=== PATIENT | female | born 1990 | race Caucasian/White ===

== ENCOUNTER 2016-10-11 06:43 | Emergency (ER) | payer BC ==
[~2016-10-11 06:43] MED LIST: MACR100C2 PO; OXYC1SOL5 PO; PERI8.6T PO; PRENTAB50 PO
[2016-10-11 08:00] LABS: BACTERIA, URINE FEW /hpf; BLOOD, URINE LARGE (NEG); COMMENT (UR) CULTURE INDICATED; CULTURE IF INDICATED CULTURE INDICATED; GLUCOSE,URINE NEG (NEG); KETONE, URINE NEG (NEG); NITRITE,URINE NEG (NEG); SQUAMOUS EPITHELIAL CELL URINE 21 /hpf (0-5); URINE COLOR YELLOW (YELLW/STRAW)
[2016-10-11] MEDS ORDERED: ZITH1POW PO (08:19)
[2016-10-11] MEDS ORDERED: CEPH-460 PO (08:19)
--- NOTE | 2016-10-11 08:20 | PD ---
HPI Chief Complaint Spotting and cramping ,headache Date Seen: Oct 11, 2016 Travel History International Travel<30 Days: No Contact w/Intl Traveler<30Days: No Known Affected Area: No History of Present Illness HPI Patient is 25-year-old white female previous 1 ,at 25 weeks gestation is complaining of some lower abdominal cramping and spotting noted today just a small clot and headache, she denies loss of amniotic fluid or heavy vaginal bleeding and no contractions, heart rate tracing is reactive and there are no contractions, she denies any postcoital bleeding and has not had a pelvic exam recently. Para: 1 : 2 History Obstetric History Obstetric History 1 Past Surgical History Narrative Surgical 1 Social History Alcohol Use: No Tobacco Use: No Substance Abuse: No Allergies-Medications (Allergen,Severity, Reaction): Coded Allergies: No Known Allergies (Unverified , 06/22/16) Home Meds Active Scripts Nitrofurantoin Monohydrate Macrocrystals (Macrobid)100 Mg [id number] Mg PO BID 5 Days Ref 0 Prov:Eriberto Michaels MD 06/23/16 Sennosides-Docusate Sodium (Ginna-Colace 8.6-50 mg)1 Tab Tab2 Tab PO Q12H PRN ( CONSTIPATION) #30 TAB Ref 0 Prov:dAe Rooney CNM AMMUNITION SUPERVISOR 02/09/15 Oxycodone W/ Acetaminophen (Oxycodone/Acetaminophen 5-325 mg/5Ml)1 Tab Tab1 Tab PO Q4H PRN (PAIN SCALE 3 TO 5) #30 TAB Prov:Chiquita Christianson MD 02/07/15 Reported Medications Without A Vit W/ Fe F ( Formula A-Free)1 Tab Tab1 Tab PO DAILY 02/05/15 Review of Systems General / Constitutional: No: Fever, Weight Gain, Chills, Other Eyes: Visual changes, No: Diploplia, Blurred Vision, Pain, Photophobia HENT: Headaches, No: Vertigo, Lightheadedness Cardiovascular: No: Irregular Rhythm, Chest Pain or Discomfort, Palpitations, Tachycardia, Syncope, Varicosities, Edema, Cyanosis Respiratory: No: Cough, Short of Breath, Other Gastrointestinal: Abdominal Pain, No: Nausea, Vomiting, Diarrhea Genitourinary: Vaginal Bleeding, No: Decreased Urinary Output, Oliguria Musculoskeletal: No: Limited ROM, Weakness, Cramping, Edema, Pain Skin: No Rash, No Itching, No Dryness, No Lumps, No Change in Pigmentation, No Change in Nails, No Alopecia, No Lesions Neurologic: No: Weakness, Dizziness, Syncope, Focal Abnormalities, Coordination Problem, Headache, Slurred Speech, Seizures Psychiatric: No: Depression, Suicidal Ideations, Homicidal Ideation Endocrine: No: Heat Intolerance, Cold Intolerance, Polydipsia, Polyuria, Other Physical Exam Narrative GENERAL: Well-nourished, well-developed patient. SKIN: Warm and dry. HEAD: Normocephalic and atraumatic. EYES: No scleral icterus. No injection or drainage. ENT: No nasal drainage noted. Mucous membranes pink. Airway patent. NECK: Supple, trachea midline. No JVD. CARDIOVASCULAR: Regular rate and rhythm without murmurs, gallops, or rubs. RESPIRATORY: Breath sounds equal bilaterally. No accessory muscle use. BREASTS: Bilateral exam showed no masses , no retractions, no nipple discharge. ABDOMEN/GI: Abdomen soft, non-tender, bowel sounds present, no rebound, no guarding Gravid to [-25] weeks size Fundal Height: [25-] GENITOURINARY: External Genitalia: intact and normal in appearance BUS glands: [-] Cervix: [very friable infected there is a dark brownish purulent discharge from the cervix and posterior fornix and the cervix very friable touch it with the speculum it was wanting to bleed freely-] cervix is large soft the large ectocervical area which provides a large field of tissue that is very easy to get infected and to bleed Dilatation: [-Closed] Effacement: [-] Uneffaced Station: [-] Membranes: [intact ] Uterine Contractions: [none-] FHT's: Category: [1-] Baseline: [133-] Reactive: [yes for 25 weeks-] Variability: [mod-] Decels: [none-] EXTREMITIES: No cyanosis or edema. BACK: Nontender without obvious deformity. No CVA tenderness. NEUROLOGICAL: Awake and alert. Motor and sensory grossly within normal limits. Five out of 5 muscle strength in all muscle groups. Normal speech. Data Data Orders Vital Signs (Adult) .ON ADMISSION (10/11/16 07:30) ^ Labor Status (10/11/16 07:30) Urinalysis - C+S If Indicated (10/11/16 07:30) Wet Prep Profile (10/11/16 07:30) Urine Culture (10/11/16 06:55) Labs Laboratory Tests Test 10/11/16 10/11/16 06:55 07:20 Urine Color YELLOW Urine Turbidity HAZY Urine pH 7.0 Urine Specific [place] 1.014 Urine Protein TRACE Urine Glucose (UA) NEG Urine Ketones NEG Urine Occult Blood LARGE Urine Nitrite NEG Urine Bilirubin NEG Urine Urobilinogen LESS THAN 2.0 Urine Leukocyte Esterase LARGE Urine RBC 1 Urine WBC 58 Urine WBC Clumps OCC Urine Squamous Epithelial 21 Cells Urine Amorphous Sediment RARE Urine Bacteria FEW Microscopic Urinalysis Comment CULTURE INDICATED Clue Cells (Wet Prep) NONE SEEN Vaginal Trichomonas (Wet Prep) NONE SEEN Vaginal Yeast (Wet Prep) NONE SEEN Date/Time Procedure Status Source Growth 10/11/16 06:55 Urine Culture Received Urine Clean Catch Pending MDM Interpretation(s) Patient is a 25-year-old white female previous at 25 weeks now with spotting and lower abdominal cramping. Examination shows cervicitis with a fairly heavy thick brownish purulent discharge in the cervix coming from the cervix which is a large wide ectocervical space which is very friable and bleeds very easily just barely touching it with speculum or digital exam, the wet prep showed no trichomoniasis yeast or clue cells however there is no question is a purulent discharge probably bacterial, urinalysis also positive culture indicated but I believe this is probably just cross contamination from the vaginal..purulence noted on exam. heart rate tracing is reactive and there are no contractions noted. Plan Plan the patient take 1 g of Zithromax by mouth and a 7 day course of Keflex 500 3 times a day, if her to follow-up with her OB provider for further symptoms or check for clearance of infection Diagnosis Diagnosis: Primary Impression: Abdominal pain during in second trimester Additional Impressions: Cervicitis Spotting affecting in second trimester Disposition: 01 DISCHARGE HOME Condition: Stable Scripts Cephalexin (Keflex)500 Mg [id number] Mg PO Q8H #30 CAP Ref 0 Prov:Marvel Gavin II, MD 10/11/16 Azithromycin Powder Packet (Zithromax Powder Packet)1 Gm Powderpack1 Gm PO ONCE #1 PKT Ref 0 Mix with water according to packet instructions before use. Prov:Marvel Gavin II, MD 10/11/16 Marvel Gavin II, MD Oct 11, 2016 08:20
== END 2016-10-11 08:48 | disposition home or self-care (01) ==
LOC: HOBED 06:43
DX: O26.852 Spotting complicating pregnancy, second trimester (principal); O23.512 Infections of cervix in pregnancy, second trimester; B96.89 Other specified bacterial agents as the cause of diseases classified elsewhere; Z3A.25 25 weeks gestation of pregnancy
CPT/HCPCS: 81001; 87086; 87210; 99284

== ENCOUNTER 2016-10-28 12:58 | Inpatient (IN) | payer BC ==
[~2016-10-28] VITALS: Ht 152.4 cm; Wt 90.7 kg
[2016-12-17] MEDS ORDERED: PREN29TA PO (19:41)
--- NOTE | 2017-01-10 14:01 | HHI.HP ---
HPI Chief Complaint preop H&P for scheduled term repeat and BTL (01/15/17) Date Seen: Jan 10, 2017 Time Seen: 10:00 Travel History International Travel<30 Days: No Contact w/Intl Traveler<30Days: No Known Affected Area: No History of Present Illness HPI 26 yo with EDC 01/22/17 will present 01/15/17 for scheduled elective repeat and BTL at 39 weeks. 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 Also had abnormal 1hr GTT but 3h wnl. Prior born via 01/2015 had Marques' s (known during ). This has been healthy with negative cfDNA and normal msAFP as well as normal ultrasounds. Pt declines MFM referral based on history. At office visit 01/10/17 pt c/o pelvic pressure but no regular contractions, no VB, no LOF. Good FM. Pain 2/10 pelvis. 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, female Past Surgical History Narrative Surgical 01/2015 Family History Narrative Family History personal history daughter with Marques's syndrome Family History: Negative Social History Alcohol Use: No Tobacco Use: No Substance Abuse: No Allergies-Medications (Allergen,Severity, Reaction): Coded Allergies: No Known Allergies (Unverified , 12/17/16) Review of Systems General / Constitutional: Weight Gain, No: Fever, Chills, Other Eyes: No: Diploplia, Blurred Vision, Visual changes, Pain, Photophobia HENT: No: Headaches, Vertigo, Lightheadedness Cardiovascular: No: Irregular Rhythm, Chest Pain or Discomfort, Palpitations, Tachycardia, Syncope, Varicosities, Edema, Cyanosis Respiratory: No: Cough, Short of Breath, Other Gastrointestinal: No: Nausea, Vomiting, Diarrhea Genitourinary: Pelvic Pain (pressure), No: Decreased Urinary Output, Oliguria Musculoskeletal: No: Limited ROM, Weakness, Cramping, Edema, Pain Skin: No Rash, No Itching, No Dryness, No Lumps, No Change in Pigmentation, No Change in Nails, No Alopecia, No Lesions Neurologic: No: Weakness, Dizziness, Syncope, Focal Abnormalities, Coordination Problem, Headache, Slurred Speech, Seizures Psychiatric: No: Depression, Suicidal Ideations, Homicidal Ideation Endocrine: No: Heat Intolerance, Cold Intolerance, Polydipsia, Polyuria, Other Physical Exam Narrative GENERAL: Well-nourished, well-developed patient. SKIN: Warm and dry. HEAD: Normocephalic and atraumatic. EYES: No scleral icterus. No injection or drainage. ENT: No nasal drainage noted. Mucous membranes pink. Airway patent. NECK: Supple, trachea midline. No JVD. CARDIOVASCULAR: Regular rate and rhythm without murmurs, gallops, or rubs. RESPIRATORY: Breath sounds equal bilaterally. No accessory muscle use. BREASTS: deferred. ABDOMEN/GI: Abdomen soft, non-tender, bowel sounds present, no rebound, no guarding Gravid to [39] weeks size Fundal Height: [39] GENITOURINARY: closed/thick/posterior -3 Presentation: [vtx] Membranes: [intact] Uterine Contractions: [none] FHT's: 150s EXTREMITIES: No cyanosis or edema. BACK: Nontender without obvious deformity. No CVA tenderness. NEUROLOGICAL: Awake and alert. Motor and sensory grossly within normal limits. Five out of 5 muscle strength in all muscle groups. Normal speech. Data Data Vital Signs Reviewed: Yes Assessment/Plan Problem List: (1) Term (2) History of delivery Assessment and Plan 26 yo who will be 39 wks on 01/15/17, at time of scheduled repeat and BTL. 1) h/o CD for repeat with BTL: r/b/a of procedure d/w pt, AQA, tubal consents & consents signed, Dr. Tanner will be performing surgery 2) UDF: for BTL at time of 3) prior infant with Marques's: all testing negative this , pt declines MFM consult; had normal anatomy scan 4) abnl 1h, passed 3h 5) status: vtx, female, AGA Discharge Planning routine, 2-3d Elida Campos MD Jan 10, 2017 14:01
[2017-01-15] VITALS (25 sets, daily range): BP systolic 120–137; BP diastolic 55–78; PULSE 82–103; RESP 18; TEMP 97.5–99.5; O2SAT 97–98
[2017-01-15 08:54] LABS: AUTOMATED NEUTROPHIL # 7.3 TH/MM3 (1.8-7.7); BASOPHIL # 0.1 TH/MM3 (0-0.2); BASOPHIL % 0.5 % (0.0-2.0); EOSINOPHIL # 0.1 TH/MM3 (0-0.4); EOSINOPHIL % 1.1 % (0.0-4.0); HEMATOCRIT 36.8 % (35.0-46.0); HEMO FLAGS DIFF FINAL; LYMPH % 20.9 % (9.0-44.0); LYMPHOCYTE # 2.2 TH/MM3 (1.0-4.8); MEAN CELL VOLUME 84.5 FL (80.0-100.0); MEAN CORPUSCULAR HEMOGLOBIN 28.5 PG (27.0-34.0); MEAN CORPUSCULAR HGB CONC 33.7 % (32.0-36.0); MONO % 6.8 % (0.0-8.0); NEUT % 70.7 % (16.0-70.0); PLATELET COUNT 164 TH/MM3 (150-450); RED BLOOD COUNT 4.36 MIL/MM3 (4.00-5.30); RED CELL DISTRIBUTION WIDTH 14.7 % (11.6-17.2); WHITE BLOOD COUNT 10.3 TH/MM3 (4.0-11.0)
[2017-01-15] MEDS ORDERED: LACTATED RINGER'S 1000 ML INJ 1,000 ML IV ONE (09:00)
[2017-01-15 09:01] LABS: BACTERIA, URINE OCC /hpf; BLOOD, URINE NEG (NEG); COMMENT (UR) CULTURE INDICATED; CULTURE IF INDICATED CULTURE INDICATED; GLUCOSE,URINE NEG (NEG); KETONE, URINE TRACE mg/dL (NEG); MUCUS URINE FEW /lpf (OCC); NITRITE,URINE NEG (NEG); SQUAMOUS EPITHELIAL CELL URINE 15 /hpf (0-5); URINE COLOR YELLOW (YELLW/STRAW)
[2017-01-15] MEDS ORDERED: LACTATED RINGER'S 1000 ML INJ 1,000 ML IV SCH ×2 (09:30→16:35)
[2017-01-15] MEDS ORDERED: OXYTOCIN 10 UNIT/ML AMP ONE (09:31)
[2017-01-15] MEDS ORDERED: ceFAZolin 2 GM PREMIX 50 ML IV SCH (09:45)
[2017-01-15] MEDS ORDERED: CITRIC ACID-SODIUM CITRATE LIQ 30 ML UDC PO SCH (10:15)
[2017-01-15] MEDS ORDERED: ONDANSETRON HCL 4 MG/2 ML VIAL ONE (11:12)
[2017-01-15] MEDS ORDERED: MORPHINE SULFATE PF 10 MG/10 ML VIAL ONE (11:12)
[2017-01-15] MEDS ORDERED: OXYTOCIN 30 UNITS-500ML PREMIX 500 ML ONE (11:20)
--- NOTE | 2017-01-15 11:35 | PD.OB.DELI ---
Procedure Note Section Procedure Pre Op Diagnosis: (1) History of delivery (2) Encounter for sterilization Post Op Diagnosis: (1) Delivered by section (2) Encounter for sterilization Performed by Fe Tanner Procedure: Repeat Low Transverse Sec, Other (fay bilateral tubal ligation) Indication for delivery: Desired elective repeat Informed consent obtained: For anesthesia, For procedure Confirmed correct: Patient, Procedure, Site, Time-out taken Anesthesia: Spinal Medication prior to procedure: As documented in eMAR Monitoring during procedure: Blood pressure monitoring, Pulse oximetry Urinary catheter: Inserted using sterile technique, To dependent drainage, ml urine output (100) Sterile preparation: Duraprep Position: Supine with wedge to right side Operative Features Skin Incision: Pfannenstiel Uterine Incision: Low transverse w/knife / blunt ext Membranes Ruptured: Amount of liquid (copious), Appearance of fluid (cl) Presentation: Vertex Delivery of infant: Uneventful : Female One Minute : 9 Five Minute : 9 Weight: 3950g Status of infant: Viable, Cord blood Placenta delivered: Intact Medications: Antibiotics, Oxytocin Estimated blood loss: 500ml Procedure tolerated: Well Maternal Condition: Stable Condition: Stable Procedure in detail dictated Fe Tanner MD Jan 15, 2017 11:35
[2017-01-15] MEDS ORDERED: oxyCODONE/ACETAMINOPHEN 5 MG/325 MG TAB PO PRN (11:45)
[2017-01-15] MEDS ORDERED: ZOLPIDEM TARTRATE 5 MG TAB PO PRN (11:45)
[2017-01-15] MEDS ORDERED: OXYTOCIN 30 UNITS-500ML PREMIX 500 ML IV ONE (11:45)
[2017-01-15] MEDS ORDERED: SIMETHICONE 80 MG CHEWABLE TAB PO PRN (11:45)
[2017-01-15] MEDS ORDERED: ONDANSETRON HCL 4 MG/2 ML VIAL IV PUSH PRN (11:45)
[2017-01-15] MEDS ORDERED: ACETAMINOPHEN 325 MG TAB PO PRN (11:45)
[2017-01-15] MEDS ORDERED: ACETAMINOPHEN 1000 MG/100 ML VIAL IV ONE (11:45)
[2017-01-15] MEDS ORDERED: SODIUM CHLORIDE 0.9% FLUSH 10 ML FLUSH IV FLUSH PRN (11:45)
[2017-01-15] MEDS ORDERED: EPIDURAL-DIPHENHYDRAMINE HCL 50 MG/ML VIAL IV PUSH PRN (12:45)
[2017-01-15] MEDS ORDERED: EPIDURAL-DO NOT ADMINISTER ANTICOAGULANTS PRN (12:45)
[2017-01-15] MEDS ORDERED: EPIDURAL-NALOXONE HCL 0.4 MG/ML AMP IV PRN (12:45)
[2017-01-15] MEDS ORDERED: EPIDURAL-NO SYSTEMIC NARCOTICS PRN (12:45)
[2017-01-15] MEDS ORDERED: EPIDURAL-DIPHENHYDRAMINE HCL 50 MG CAP PO PRN (12:45)
[2017-01-15] MEDS ORDERED: SODIUM CHLORIDE 0.9% FLUSH 10 ML FLUSH IV FLUSH SCH (21:00)
[2017-01-15] MEDS ORDERED: OXYTOCIN 30 UNITS-500ML PREMIX 500 ML IV PRN (21:45)
[2017-01-15] MEDS: oxyCODONE/ACETAMINOPHEN 5 MG/325 MG TAB PO PRN (22:43)
[2017-01-15] MEDS: IBUPROFEN 600 MG TAB PO PRN (22:43)
[2017-01-16] MEDS: oxyCODONE/ACETAMINOPHEN 5 MG/325 MG TAB PO PRN ×4 (03:19→20:47)
[2017-01-16 03:24] VITALS: BP 114/76; PULSE 94; RESP 18; TEMP 98.9; O2SAT 97
[2017-01-16 06:05] LABS: AUTOMATED NEUTROPHIL # 8.1 TH/MM3 (1.8-7.7); BASOPHIL % 0.3 % (0.0-2.0); EOSINOPHIL # 0.1 TH/MM3 (0-0.4); EOSINOPHIL % 0.9 % (0.0-4.0); HEMATOCRIT 29.7 % (35.0-46.0); HEMO FLAGS DIFF FINAL; LYMPH % 16.4 % (9.0-44.0); LYMPHOCYTE # 1.8 TH/MM3 (1.0-4.8); MEAN CELL VOLUME 83.8 FL (80.0-100.0); MEAN CORPUSCULAR HEMOGLOBIN 29.6 PG (27.0-34.0); MEAN CORPUSCULAR HGB CONC 35.3 % (32.0-36.0); MONO % 6.7 % (0.0-8.0); NEUT % 75.7 % (16.0-70.0); PLATELET COUNT 120 TH/MM3 (150-450); RED BLOOD COUNT 3.54 MIL/MM3 (4.00-5.30); RED CELL DISTRIBUTION WIDTH 14.8 % (11.6-17.2); WHITE BLOOD COUNT 10.7 TH/MM3 (4.0-11.0)
[2017-01-16 08:20] VITALS: BP 120/84; PULSE 98; RESP 16; TEMP 97.9
--- NOTE | 2017-01-16 08:26 | HHI.OB ---
Subjective Post Operative Day: 1 Remarks doing well, ambulating Objective Vitals/I&O Vital Signs Date Time Temp Pulse Resp B/P Pulse Ox O2 Delivery O2 Flow Rate FiO2 01/16/17 03:24 98.9 94 18 114/76 97 01/15/17 20:00 96 18 01/15/17 20:00 125/75 01/15/17 20:00 99.5 01/15/17 17:00 98.0 88 18 120/78 01/15/17 12:40 98.4 89 18 123/75 01/15/17 12:00 98.3 97 01/15/17 12:00 90 18 128/62 01/15/17 11:45 88 127/55 01/15/17 11:45 18 98 01/15/17 11:30 137/67 01/15/17 11:30 90 18 97 01/15/17 11:15 103 131/65 01/15/17 11:15 97.5 18 98 01/15/17 09:45 84 01/15/17 09:40 91 01/15/17 09:35 87 01/15/17 09:25 85 01/15/17 09:20 86 01/15/17 09:15 86 01/15/17 09:10 82 01/15/17 09:05 83 01/15/17 09:00 85 01/15/17 08:55 86 01/15/17 08:50 90 01/15/17 08:45 95 01/15/17 08:40 93 01/15/17 08:35 93 01/15/17 08:30 92 01/15/17 08:25 98 Result Diagram: 01/16/17 0530 Objective Remarks GENERAL: Well-nourished, well-developed patient. CARDIOVASCULAR: Regular rate and rhythm without murmurs, gallops, or rubs. RESPIRATORY: Breath sounds equal bilaterally. No accessory muscle use. ABDOMEN/GI: Abdomen soft, non-tender, bowel sounds present. Incision: dressing Clean, dry and intact. Fundus: Firm, non-tender at umbilicus. GENITOURINARY: Light to moderate bleeding. EXTREMITIES: No cyanosis or edema, non-tender, without signs of DVT. Medications and IVs Current Medications Medications (Trade) Dose Ordered Sig/Cheryl Route Start Time Stop Time Status Last Admin (Lr 1000 ml Inj) 1,000 ml @ 100 mls/hr Q10H IV 01/15/17 16:35 01/16/17 12:34 (NS Flush) 2 ml BID IV FLUSH 01/15/17 21:00 (NS Flush) 2 ml UNSCH PRN IV FLUSH 01/15/17 11:45 (Mylicon Chew) 80 mg QID PRN PO 01/15/17 11:45 01/15/17 22:43 (Tylenol) 650 mg Q6H PRN PO 01/15/17 11:45 (Motrin) 600 mg Q6H PRN PO 01/15/17 11:45 01/15/17 22:43 (Percocet 5-325 Mg) 1 tab Q4H PRN PO 01/15/17 11:45 01/16/17 03:19 (Percocet 5-325 Mg) 2 tab Q4H PRN PO 01/15/17 11:45 (Ginna-Colace) 2 tab Q12H PRN PO 01/15/17 11:45 (Ambien) 5 mg HS PRN PO 01/15/17 11:45 (M-M-R Ii Inj) 0.5 ml ONCE ONCE SQ 01/16/17 16:00 01/16/17 16:01 (Boostrix Inj) 0.5 ml ONCE ONCE IM 01/16/17 16:00 01/16/17 16:01 (Zofran Inj) 4 mg Q6H PRN IV PUSH 01/15/17 11:45 Miscellaneous Information NO SYSTEMIC NARCOTICS TO BE GIVEN FO... UNSCH PRN .XX 01/15/17 12:45 01/16/17 12:44 (Narcan Inj) 0.4 mg UNSCH PRN IV 01/15/17 12:45 01/16/17 12:44 (Benadryl Inj) 25 mg Q6H PRN IV PUSH 01/15/17 12:45 01/16/17 12:44 01/15/17 13:25 (Benadryl) 50 mg Q6H PRN PO 01/15/17 12:45 01/16/17 12:44 Miscellaneous Information ALL NURSING DEPARTMENTS UNSCH PRN .XX 01/15/17 12:45 01/16/17 12:44 Assessment/Plan Problem List: (1) Term (2) History of delivery Assessment and Plan 26 yo s/p repeat C/S and BTL POD #1 1) h/o CD for repeat with BTL: r/b/a of procedure d/w pt, AQA, tubal consents & consents signed, Dr. Tanner will be performing surgery 2) UDF: for BTL at time of 3) prior with Marques's: all testing negative this , pt declines MFM consult; had normal anatomy scan Discharge Planning routine, 2-3d Attending Attestation pt seen by Kalpana Coleman MD Jan 16, 2017 08:26
[2017-01-16] MEDS: DOCUSATE SODIUM 50 MG/SENNA 8.6 MG TAB PO PRN ×2 (08:30→20:47)
[2017-01-16] MEDS: IBUPROFEN 600 MG TAB PO PRN ×3 (08:31→20:47)
[2017-01-16] MEDS ORDERED: MEASLES, MUMPS, RUBELLA VACCINE 0.5 ML VIAL SQ ONE (16:00)
[2017-01-16] MEDS ORDERED: DIPHTH/TETANUS/ACEL PERTUSSIS (BOOSTER) 0.5 ML VIAL/PFS IM ONE (16:00)
[2017-01-16 21:08] VITALS: BP 132/80; PULSE 98; RESP 20; TEMP 97.9
[2017-01-17] MEDS: oxyCODONE/ACETAMINOPHEN 5 MG/325 MG TAB PO PRN ×4 (03:57→20:47)
[2017-01-17] MEDS: IBUPROFEN 600 MG TAB PO PRN ×3 (03:57→16:50)
[2017-01-17 08:10] VITALS: BP 119/89; PULSE 95; RESP 16; TEMP 97.9
--- NOTE | 2017-01-17 11:15 | MP ---
cc: LEEANN TANNER MD DATE OF SURGERY 01/14/2017 PREOPERATIVE DIAGNOSES 1. Intrauterine at 39 weeks. 2. History of delivery, desired elective repeat. 3. Undesired fertility. POSTOPERATIVE DIAGNOSES 1. Intrauterine at 39 weeks. 2. History of delivery, desired elective repeat. 3. Undesired fertility. PROCEDURE PERFORMED Repeat low transverse delivery with Eckley bilateral tubal ligation. SURGEON Leeann Tanner MD HIDE EXAMINER [place] staff INDICATION The patient is a 26-year-old G2, P1-0-0-1 with intrauterine at 39 weeks who desires an elective repeat with bilateral tubal ligation. She has no further desired fertility, is aware that this is a permanent sterilization procedure and desires to proceed. Consents were reviewed and signed on chart. ANESTHESIA Spinal. IV FLUIDS 1 liter lactated Ringer. ESTIMATED BLOOD LOSS 500 mL. URINE OUTPUT 100 mL of clear yellow urine. PREOPERATIVE ANTIBIOTICS Ancef 2 grams IV given pre-incision. DVT PROPHYLAXIS SCDs to bilateral extremities. COMPLICATIONS None. COUNTS Correct x 3. SPECIMEN Cord blood. INTRAOPERATIVE FINDINGS A viable female , Apgars of 9 and 9, weight 3950 grams. Three-vessel cord. Placenta intact. The uterus and bilateral tubes were within normal limits. Ovaries within normal limits. PROCEDURE IN DETAIL After giving informed consent, the patient was taken to the operating room where spinal anesthesia was administered without complication. She was placed in dorsal supine position with a slight leftward tilt. A Ramírez was placed under sterile conditions. The abdomen was prepped and draped on a normal sterile fashion. Time-out was taken. A Pfannenstiel skin incision was performed at the prior incision site with the scalpel and carried down to underlying layer of fascia with the Bovie. The fascia was incised in the midline and extended bilaterally with Schwartz scissors. The fascia was grasped with Tristian clamps, elevated and the rectus muscle dissected off the fascia with Schwartz scissors. The same was repeated in the inferior aspect. The rectus muscles were in the midline with a hemostat and sharply with Metzenbaum scissors. The peritoneum was entered bluntly. There were no adhesions noted. The incision was extended bluntly. A bladder blade was then inserted. A bladder flap was then created with Metzenbaum scissors. A low transverse uterine incision was made with a scalpel. Copious amounts of amniotic fluid were noted. The head was flexed. Then fundal pressure was used to deliver the head, followed by the body. The was bulb suctioned. The cord was doubly clamped and cut. The was handed off to awaiting nursery team. After delivery of the , Pitocin infusion was started. The uterus was massaged and gentle cord traction was used to deliver the placenta. The uterus was exteriorized and cleared of all clots and debris with moist laparotomy sponges. The uterus was repaired in two layers with #1 chromic in a running locked fashion followed by an imbricating layer. Good hemostasis was noted. Attention was then turned to the tubal ligation. The left tube was grasped with Cedrick clamps and followed out to the fimbriated end. The Bonesteel clamps were placed approximately 4 cm from the cornual region and an approximately 3-cm segment of the tube was doubly with plain gut and a portion removed with Metzenbaum scissors. Both ostia were noted. Good hemostasis was noted. The same was repeated on the opposite side. The posterior cul-de-sac was irrigated and suctioned. The uterine hysterotomy was noted to be hemostatic. The uterus was returned to the abdomen. Both tubal sites were inspected and noted to be hemostatic. The anterior cul-de-sac was irrigated and suctioned. The peritoneum was closed in a pursestring fashion with #2-0 chromic. The fascia was closed with #1 Vicryl in a running fashion. The subcutaneous tissue was irrigated and suctioned. Hemostasis was obtained with a Bovie. This layer was closed with 2-0 chromic in a running fashion. The skin was closed with 3-0 Monocryl in a subcuticular fashion. Steri-Strips were placed and a pressure dressing was placed. The patient tolerated the procedure well. She went to the PACU in stable condition. Leeann Tanner MD PE/TRISTIN /2:01 PM /11:00 AM
[2017-01-17] MEDS: DOCUSATE SODIUM 50 MG/SENNA 8.6 MG TAB PO PRN (16:50)
--- NOTE | 2017-01-17 18:19 | HHI.OB ---
Subjective Post Operative Day: 2 Remarks Doing well states post op pain and cramping significant concerned that baby in NICU Objective Vitals/I&O Vital Signs Date Time Temp Pulse Resp B/P Pulse Ox O2 Delivery O2 Flow Rate FiO2 01/17/17 08:10 97.9 95 16 119/89 01/16/17 21:47 20 01/16/17 21:47 20 01/16/17 21:08 97.9 98 20 132/80 Result Diagram: 01/16/17 0530 Objective Remarks GENERAL: Well-nourished, well-developed patient. CARDIOVASCULAR: Regular rate and rhythm without murmurs, gallops, or rubs. RESPIRATORY: Breath sounds equal bilaterally. No accessory muscle use. ABDOMEN/GI: Abdomen soft, non-tender, bowel sounds present. Incision:, dry and intact. Fundus: Firm, non-tender at umbilicus. GENITOURINARY: Light to moderate bleeding. EXTREMITIES: No cyanosis or edema, non-tender, without signs of DVT. Medications and IVs Current Medications Medications (Trade) Dose Ordered Sig/Cheryl Route Start Time Stop Time Status Last Admin (NS Flush) 2 ml BID IV FLUSH 01/15/17 21:00 (NS Flush) 2 ml UNSCH PRN IV FLUSH 01/15/17 11:45 (Mylicon Chew) 80 mg QID PRN PO 01/15/17 11:45 01/15/17 22:43 (Tylenol) 650 mg Q6H PRN PO 01/15/17 11:45 (Motrin) 600 mg Q6H PRN PO 01/15/17 11:45 01/17/17 16:50 (Percocet 5-325 Mg) 1 tab Q4H PRN PO 01/15/17 11:45 01/17/17 16:50 (Percocet 5-325 Mg) 2 tab Q4H PRN PO 01/15/17 11:45 (Ginna-Colace) 2 tab Q12H PRN PO 01/15/17 11:45 01/17/17 16:50 (Ambien) 5 mg HS PRN PO 01/15/17 11:45 (Zofran Inj) 4 mg Q6H PRN IV PUSH 01/15/17 11:45 Assessment/Plan Problem List: (1) Term (2) History of delivery Assessment and Plan stable POD 2 will check on infant in NICU pumping well Discharge Planning routine, 2-3d Chiquita Christianson MD Jan 17, 2017 18:19
[2017-01-17 20:25] VITALS: BP 126/79; PULSE 90; RESP 17; TEMP 98.3
[2017-01-18] MEDS: IBUPROFEN 600 MG TAB PO PRN ×2 (00:41→05:57)
[2017-01-18] MEDS: oxyCODONE/ACETAMINOPHEN 5 MG/325 MG TAB PO PRN ×2 (00:41→05:57)
[2017-01-18] MEDS ORDERED: IBUP-232 PO (07:22)
[2017-01-18] MEDS ORDERED: OXYC1TAB63 PO (07:22)
[2017-01-18] MEDS ORDERED: SENN1TAB PO (07:22)
--- NOTE | 2017-01-18 07:24 | HHI.DCPOC ---
Discharge Care Plan Diagnosis: (1) S/P repeat low transverse Your Health Problems Are: delivery Report Symptoms to Your Doctor -Temperature above 100.5 degrees -Redness, of incision or excessive or foul smelling drainage -Unusual pain or calf pain -Increased vaginal bleeding -Painful or difficulty urinating -Feelings of extreme sadness or anxiety after 2 weeks Goals to Promote Your Health * To prevent worsening of your condition and complications * To maintain your health at the optimal level Directions to Meet Your Goals Take your medications as prescribed Follow your dietary instruction Follow activity as directed Ensure plenty of rest for recovery Drink fluids for hydration Keep your appointments as scheduled Take your immunizations and boosters as scheduled If your symptoms worsen call your PCP, if no PCP go to Urgent Care Center or Emergency Room Smoking is Dangerous to Your Health. Avoid second hand smoke Call the 24-hour crisis hotline for domestic abuse at Elida Campos MD Jan 18, 2017 07:23
--- NOTE | 2017-01-18 07:25 | HHI.OB ---
Subjective Post Operative Day: 3 Objective Vitals/I&O Vital Signs Date Time Temp Pulse Resp B/P Pulse Ox O2 Delivery O2 Flow Rate FiO2 01/17/17 20:25 126/79 01/17/17 20:25 98.3 90 17 01/17/17 08:10 97.9 95 16 119/89 Result Diagram: 01/16/17 0530 Objective Remarks GENERAL: Well-nourished, well-developed patient. CARDIOVASCULAR: Regular rate and rhythm without murmurs, gallops, or rubs. RESPIRATORY: Breath sounds equal bilaterally. No accessory muscle use. ABDOMEN/GI: Abdomen soft, non-tender, bowel sounds present. Incision:, dry and intact. steri-strips in place Fundus: Firm, non-tender at umbilicus. GENITOURINARY: Light bleeding. EXTREMITIES: No cyanosis or edema, non-tender, without signs of DVT. Medications and IVs Current Medications Medications (Trade) Dose Ordered Sig/Cheryl Route Start Time Stop Time Status Last Admin (NS Flush) 2 ml BID IV FLUSH 01/15/17 21:00 (NS Flush) 2 ml UNSCH PRN IV FLUSH 01/15/17 11:45 (Mylicon Chew) 80 mg QID PRN PO 01/15/17 11:45 01/15/17 22:43 (Tylenol) 650 mg Q6H PRN PO 01/15/17 11:45 (Motrin) 600 mg Q6H PRN PO 01/15/17 11:45 01/18/17 05:57 (Percocet 5-325 Mg) 1 tab Q4H PRN PO 01/15/17 11:45 01/18/17 05:57 (Percocet 5-325 Mg) 2 tab Q4H PRN PO 01/15/17 11:45 (Ginna-Colace) 2 tab Q12H PRN PO 01/15/17 11:45 01/17/17 16:50 (Ambien) 5 mg HS PRN PO 01/15/17 11:45 (Zofran Inj) 4 mg Q6H PRN IV PUSH 01/15/17 11:45 Assessment/Plan Problem List: (1) Term (2) History of delivery Assessment and Plan stable POD 3 pumping d/c to home today Discharge Planning today Elida Campos MD Jan 18, 2017 07:24
[2017-01-18 08:00] VITALS: BP 119/80; PULSE 86; RESP 18; TEMP 98.6
== END 2017-01-18 10:12 | disposition home or self-care (01) | DRG 766 ==
LOC: H2EB 01-15 07:52 → H1EA 01-15 12:26 → EDSTATUS 01-19 07:30
PROVIDERS: ADMIT Obstetrics & Gynecology; ATTEND Obstetrics & Gynecology
PROC: 10D00Z1 Extraction of Products of Conception, Low, Open Approach (ICD-10-PCS; principal; 2017-01-15)
PROC: 0UB70ZZ Excision of Bilateral Fallopian Tubes, Open Approach (ICD-10-PCS; 2017-01-15)
DX: O34.211 Maternal care for low transverse scar from previous cesarean delivery (principal); Z30.2 Encounter for sterilization; Z37.0 Single live birth; Z3A.39 39 weeks gestation of pregnancy
CPT/HCPCS: 59025; 81001; 85025; 85461; 86850; 86900; 86901; 87086; 88302; 90384; J0131; J0690; J1200; J2274; J2405; J2590; J2790; J7120

== ENCOUNTER 2016-11-16 13:19 | Emergency (ER) | payer BC ==
[~2016-11-16 13:19] MED LIST changes: +CEPH-460 PO; +ZITH1POW PO
[2016-11-16 13:36] VITALS: RESP 18; TEMP 97.5
[2016-11-16 13:37] VITALS: BP 111/73; PULSE 88
--- NOTE | 2016-11-16 14:49 | PD ---
HPI Chief Complaint Vaginal fluid Date Seen: November 16, 2016 Time Seen: 14:45 Travel History International Travel<30 Days: No Contact w/Intl Traveler<30Days: No Known Affected Area: No History of Present Illness HPI 26-year-old who is at 30 weeks and 3 days comes in today with some leaking in the vaginal area for the past couple days. She is not concerned for the past couple days thinking it was swept or urine but today she noticed that she leaked twice this morning. Clear, no vaginal pressure for abdominal pain denies contractions. Good movement is noted. Patient has a history of intermittent vaginal bleeding since the first trimester but has normal rate of growth ultrasounds. Para: 1 : 2 History Past Medical History Medical History: Denies Significant Hx Obstetric History Obstetric History section Past Surgical History Narrative Surgical section Family History Family History: Negative Social History Alcohol Use: No Tobacco Use: No Substance Abuse: No Allergies-Medications (Allergen,Severity, Reaction): Coded Allergies: No Known Allergies (Unverified , 06/22/16) Home Meds Active Scripts Cephalexin (Keflex)500 Mg [id number] Mg PO Q8H #30 CAP Ref 0 Prov:Marvel Gavin II, MD 10/11/16 Azithromycin Powder Packet (Zithromax Powder Packet)1 Gm Powderpack1 Gm PO ONCE #1 PKT Ref 0 Mix with water according to packet instructions before use. Prov:Marvel Gavin II, MD 10/11/16 Nitrofurantoin Monohydrate Macrocrystals (Macrobid)100 Mg [id number] Mg PO BID 5 Days Ref 0 Prov:Eriberto Michaels MD 06/23/16 Sennosides-Docusate Sodium (Ginna-Colace 8.6-50 mg)1 Tab Tab2 Tab PO Q12H PRN ( CONSTIPATION) #30 TAB Ref 0 Prov:Ade Rooney CNM COMMERCIAL LOAN ADMINISTRATOR 02/09/15 Oxycodone W/ Acetaminophen (Oxycodone/Acetaminophen 5-325 mg/5Ml)1 Tab Tab1 Tab PO Q4H PRN (PAIN SCALE 3 TO 5) #30 TAB Prov:Chiquita Christianson MD 02/07/15 Reported Medications Without A Vit W/ Fe F ( Formula A-Free)1 Tab Tab1 Tab PO DAILY 02/05/15 Review of Systems Except as stated in HPI: all other systems reviewed are Neg Physical Exam Vital Signs Date Time Temp Pulse Resp B/P Pulse Ox O2 Delivery O2 Flow Rate FiO2 11/16/16 13:37 88 111/73 11/16/16 13:36 97.5 18 Narrative GENERAL: Well-nourished, well-developed patient. SKIN: Warm and dry. HEAD: Normocephalic and atraumatic. EYES: No scleral icterus. No injection or drainage. ENT: No nasal drainage noted. Mucous membranes pink. Airway patent. NECK: Supple, trachea midline. No JVD. CARDIOVASCULAR: Regular rate and rhythm without murmurs, gallops, or rubs. RESPIRATORY: Breath sounds equal bilaterally. No accessory muscle use. ABDOMEN/GI: Abdomen soft, non-tender, bowel sounds present, no rebound, no guarding Gravid to [-] weeks size Fundal Height: [30-] GENITOURINARY: External Genitalia: intact and normal in appearance BUS glands: [Normal-] Cervix: [-Posterior] Dilatation: [-Closed] Effacement: [50-] Station: [High] Presentation: [-Vertex] Membranes: [intact] amnisure negative Uterine Contractions: [-Absent] FHT's: Category: [-1] Baseline: [-140] Reactive: [-] Variability: [Moderate-] Decels: [-Absent] EXTREMITIES: No cyanosis or edema. BACK: Nontender without obvious deformity. No CVA tenderness. NEUROLOGICAL: Awake and alert. Motor and sensory grossly within normal limits. Five out of 5 muscle strength in all muscle groups. Normal speech. Data Data Vital Signs Reviewed: Yes Orders Vital Signs (Adult) .ON ADMISSION (11/16/16 13:27) ^ Labor Status (11/16/16 13:27) Pamg-1 Test .ONCE (11/16/16 13:27) Heart (11/16/16 13:34) MDM Medical Record Reviewed: Yes Plan 26-year-old who is at 30 weeks 3 days with intact membranes by amnisure and clinical examination Previous Intermittent vaginal bleeding since first trimester no obvious etiology but patient has normal rate of growth an nothing more than vaginal spotting Patient has follow-up appointment on Monday Diagnosis Diagnosis: Primary Impression: 30 weeks gestation of Additional Impressions: Intact amniotic membranes Intact amniotic membranes during in third trimester Previous delivery affecting , antepartum Disposition: 01 DISCHARGE HOME Radha Mcleod MD November 16, 2016 14:49
== END 2016-11-16 14:57 | disposition home or self-care (01) ==
LOC: HOBED 13:19
DX: O26.893 Other specified pregnancy related conditions, third trimester (principal); N89.8 Other specified noninflammatory disorders of vagina; Z3A.30 30 weeks gestation of pregnancy
CPT/HCPCS: 84112; 99284

== ENCOUNTER 2016-11-30 16:42 | Observation (INO) | payer BC ==
--- NOTE | 2016-11-30 17:06 | PD ---
HPI Chief Complaint Decreased movement and abdominal pain. Travel History International Travel<30 Days: No Contact w/Intl Traveler<30Days: No Known Affected Area: No History of Present Illness HPI at 32w 3d. Patient presents with decreased movement today. Reports FM upon arrival to [facility]. Patient also reports midabdominal pain radiating to pelvis. Reports this pain present for 2-3 weeks. Denies urinary or bowel complaints. care with Dr. Campos. Para: 1 : 2 Last Menstrual Period: Nov 30, 2016 History Past Medical History Medical History: Denies Significant Hx Obstetric History Obstetric History FT C/S Past Surgical History Narrative Surgical C/S Social History Alcohol Use: No Tobacco Use: No Substance Abuse: No Allergies-Medications (Allergen,Severity, Reaction): Coded Allergies: No Known Allergies (Unverified , 06/22/16) Home Meds Active Scripts Cephalexin (Keflex)500 Mg [id number] Mg PO Q8H #30 CAP Ref 0 Prov:Marvel Gavin II, MD 10/11/16 Azithromycin Powder Packet (Zithromax Powder Packet)1 Gm Powderpack1 Gm PO ONCE #1 PKT Ref 0 Mix with water according to packet instructions before use. Prov:Marvel Gavin II, MD 10/11/16 Nitrofurantoin Monohydrate Macrocrystals (Macrobid)100 Mg [id number] Mg PO BID 5 Days Ref 0 Prov:Eriberto Michaels MD 06/23/16 Sennosides-Docusate Sodium (Ginna-Colace 8.6-50 mg)1 Tab Tab2 Tab PO Q12H PRN ( CONSTIPATION) #30 TAB Ref 0 Prov:Ade Rooney CNM LCPC 02/09/15 Oxycodone W/ Acetaminophen (Oxycodone/Acetaminophen 5-325 mg/5Ml)1 Tab Tab1 Tab PO Q4H PRN (PAIN SCALE 3 TO 5) #30 TAB Prov:Chiquita Christianson MD 02/07/15 Reported Medications Without A Vit W/ Fe F ( Formula A-Free)1 Tab Tab1 Tab PO DAILY 02/05/15 Review of Systems Except as stated in HPI: all other systems reviewed are Neg Physical Exam AFVSS BP 120/58 Narrative GENERAL: Well-nourished, well-developed patient. SKIN: Warm and dry. HEAD: Normocephalic and atraumatic. EYES: No scleral icterus. No injection or drainage. ENT: No nasal drainage noted. Mucous membranes pink. Airway patent. NECK: Supple, trachea midline. No JVD. CARDIOVASCULAR: Regular rate and rhythm without murmurs, gallops, or rubs. RESPIRATORY: Breath sounds equal bilaterally. No accessory muscle use. BREASTS: Bilateral exam showed no masses , no retractions, no nipple discharge. ABDOMEN/GI: Abdomen soft, non-tender, bowel sounds present, no rebound, no guarding Gravid to [-] weeks size Fundal Height: [-] GENITOURINARY: SSE: yellow discharge, no bleeding noted External Genitalia: intact and normal in appearance BUS glands: [-] Cervix: [-] Dilatation: [0] Effacement: [20] Station: [-3] Presentation: [-] Membranes: [intact or ruptured] Uterine Contractions: [occasional contractions] FHT's: Category: [1] Baseline: [150s] Reactive: [yes] Variability: [moderate] Decels: [none] EXTREMITIES: No cyanosis or edema. BACK: Nontender without obvious deformity. No CVA tenderness. NEUROLOGICAL: Awake and alert. Motor and sensory grossly within normal limits. Five out of 5 muscle strength in all muscle groups. Normal speech. MDM Interpretation(s) IUP at 32w 3d, decreased FM and abdominal pain. Plan Will obtain UA, FFN, and wet prep. Will begin IVF. Continuous monitoring. FFN- positive. Current status and admission for observation d/w patient. All questions answered. Dr. Thakur notified. Diagnosis Diagnosis: Primary Impression: 32 weeks gestation of Additional Impressions: Irregular uterine contractions Abdominal pain during in third trimester Nataliya Trejo MD Nov 30, 2016 17:06
[2016-11-30 18:11] LABS: BACTERIA, URINE RARE /hpf; BLOOD, URINE NEG (NEG); COMMENT (UR) CULTURE INDICATED; CULTURE IF INDICATED CULTURE INDICATED; GLUCOSE,URINE NEG (NEG); KETONE, URINE 10 mg/dL (NEG); MUCUS URINE FEW /lpf (OCC); NITRITE,URINE NEG (NEG); SQUAMOUS EPITHELIAL CELL URINE 13 /hpf (0-5); URINE COLOR YELLOW (YELLW/STRAW)
[2016-11-30] MEDS ORDERED: SODIUM CHLORIDE 0.9% FLUSH 10 ML FLUSH IV FLUSH PRN (19:15)
[2016-11-30 19:39] VITALS: RESP 18
[2016-11-30 19:40] VITALS: BP 107/44; PULSE 91
[2016-11-30] MEDS ORDERED: cefTRIAXone INJ 1,000 MG in SODIUM CHLORIDE 0.9% INJ 100 ML IV SCH (20:00)
[2016-11-30] MEDS: LACTATED RINGER'S 1000 ML INJ 1,000 ML IV SCH (20:55)
[2016-11-30] MEDS ORDERED: SODIUM CHLORIDE 0.9% FLUSH 10 ML FLUSH IV FLUSH SCH (21:00)
[2016-11-30 22:02] VITALS: BP 117/69; PULSE 91; RESP 18; TEMP 98.3
[2016-11-30 23:30] VITALS: BP 111/61; PULSE 94
[2016-11-30 23:31] VITALS: RESP 18; TEMP 98
[2016-12-01] VITALS (13 sets, daily range): BP systolic 114–125; BP diastolic 58–76; PULSE 86–97; RESP 18; TEMP 98–98.6
[2016-12-01 01:13] LABS: AUTOMATED NEUTROPHIL # 5.6 TH/MM3 (1.8-7.7); BASOPHIL # 0.1 TH/MM3 (0-0.2); BASOPHIL % 0.8 % (0.0-2.0); EOSINOPHIL # 0.1 TH/MM3 (0-0.4); EOSINOPHIL % 1.4 % (0.0-4.0); HEMATOCRIT 30.6 % (35.0-46.0); HEMO FLAGS DIFF FINAL; LYMPHOCYTE # 2.2 TH/MM3 (1.0-4.8); MEAN CELL VOLUME 84.7 FL (80.0-100.0); MEAN CORPUSCULAR HEMOGLOBIN 29.4 PG (27.0-34.0); MEAN CORPUSCULAR HGB CONC 34.7 % (32.0-36.0); MONO % 8.3 % (0.0-8.0); NEUT % 64.5 % (16.0-70.0); PLATELET COUNT 132 TH/MM3 (150-450); RED BLOOD COUNT 3.61 MIL/MM3 (4.00-5.30); RED CELL DISTRIBUTION WIDTH 14.5 % (11.6-17.2); WHITE BLOOD COUNT 8.6 TH/MM3 (4.0-11.0)
[2016-12-01] MEDS: LACTATED RINGER'S 1000 ML INJ 1,000 ML IV SCH (02:00)
--- NOTE | 2016-12-01 08:12 | PD.OB.ANTE ---
Subjective Diagnosis: (1) Intrauterine (2) 32 weeks gestation of (3) Abdominal pain during in third trimester Interval History +UA, got rocephin last night, FFN+, h/o C/S Antepartum ROS: Reports: Other (no VB, no LOF, +FM, no ctx now) Objective Vital Signs Vital Signs Date Time Temp Pulse Resp B/P Pulse Ox O2 Delivery O2 Flow Rate FiO2 12/01/16 07:57 18 12/01/16 07:50 92 117/74 12/01/16 06:30 96 119/58 12/01/16 06:30 18 12/01/16 06:20 92 12/01/16 05:55 89 12/01/16 04:55 86 12/01/16 04:10 92 12/01/16 03:55 91 12/01/16 03:40 86 12/01/16 03:24 98.0 12/01/16 03:21 114/71 12/01/16 03:21 97 18 12/01/16 03:20 125/76 11/30/16 23:31 98.0 18 11/30/16 23:30 94 111/61 11/30/16 22:02 98.3 11/30/16 22:02 91 18 117/69 11/30/16 19:40 91 107/44 11/30/16 19:39 18 Lab & Micro Results Test 11/30/16 11/30/16 12/01/16 12/01/16 17:10 18:15 00:55 02:15 Urine Color YELLOW Urine Turbidity HAZY Urine pH 7.0 Urine Specific [place] 1.017 Urine Protein TRACE mg/dL Urine Glucose (UA) NEG mg/dL Urine Ketones 10 mg/dL Urine Occult Blood NEG Urine Nitrite NEG Urine Bilirubin NEG Urine Urobilinogen 2.0 MG/DL Urine Leukocyte Esterase LARGE Urine RBC 7 /hpf Urine WBC 62 /hpf Urine Squamous Epithelial 13 /hpf Cells Urine Amorphous Sediment RARE Urine Bacteria RARE /hpf Urine Mucus FEW /lpf Microscopic Urinalysis Comment CULTURE INDICATED Clue Cells (Wet Prep) NONE SEEN Vaginal Trichomonas (Wet Prep) NONE SEEN Vaginal Yeast (Wet Prep) NONE SEEN Fibronectin POSITIVE White Blood Count 8.6 TH/MM3 Red Blood Count 3.61 MIL/MM3 Hemoglobin 10.6 GM/DL Hematocrit 30.6 % Mean Corpuscular Volume 84.7 FL Mean Corpuscular Hemoglobin 29.4 PG Mean Corpuscular Hemoglobin 34.7 % Concent Red Cell Distribution Width 14.5 % Platelet Count 132 TH/MM3 Mean Platelet Volume 8.0 FL Neutrophils (%) (Auto) 64.5 % Lymphocytes (%) (Auto) 25.0 % Monocytes (%) (Auto) 8.3 % Eosinophils (%) (Auto) 1.4 % Basophils (%) (Auto) 0.8 % Neutrophils # (Auto) 5.6 TH/MM3 Lymphocytes # (Auto) 2.2 TH/MM3 Monocytes # (Auto) 0.7 TH/MM3 Eosinophils # (Auto) 0.1 TH/MM3 Basophils # (Auto) 0.1 TH/MM3 CBC Comment DIFF FINAL Differential Comment Blood Type O NEGATIVE Antibody Screen POSITIVE Crossmatch Leukocyte-Reduced Red Blood Cells Blood Bank Comment Antibody Identification PASSIVE ANTI-D DUE TO RHOGAM Date/Time Procedure Status Source Growth 11/30/16 17:10 Urine Culture Received Urine Clean Catch Pending Physical Exam GENERAL: Well-nourished, well-developed patient. CARDIOVASCULAR: Regular rate and rhythm without murmurs, gallops, or rubs. RESPIRATORY: Breath sounds equal bilaterally. No accessory muscle use. ABDOMEN/GI: Abdomen soft, non-tender. Fundus: [-] GENITOURINARY: External Genitalia: intact and normal in appearance Cervix: [-] Dilatation: [-] 0 Effacement: [-] Station: [-] Presentation: [-] Membranes: [-] Uterine Contractions: [-] none FHT's: Category: [-] 1 Baseline: [-] Reactive: [-] R Variability: [-] Decels: [-] EXTREMITIES: No cyanosis or edema, non-tender, without signs of DVT. Assessment and Plan Problem List: (1) Intrauterine Status: Acute (2) 32 weeks gestation of Status: Acute (3) Abdominal pain during in third trimester Status: Acute (4) UTI (urinary tract infection) Status: Acute Assessment and Plan IUP at 32+ wks, UTI, FFN+ will give celestone IM x1 now and repeat in 24 hrs. send home with macrobid on bedrest rto 1 wk Kalpana Ramirez MD Dec 01, 2016 08:12
--- NOTE | 2016-12-01 08:13 | HHI.DCPOC ---
Discharge Care Plan Your Health Problems Are: Abdominal pain Report Symptoms to Your Doctor -Temperature above 100.5 degrees -Redness, of incision or excessive or foul smelling drainage -Unusual pain or calf pain -Increased vaginal bleeding -Painful or difficulty urinating -Feelings of extreme sadness or anxiety after 2 weeks Goals to Promote Your Health * To prevent worsening of your condition and complications * To maintain your health at the optimal level Directions to Meet Your Goals Take your medications as prescribed Follow your dietary instruction Follow activity as directed Ensure plenty of rest for recovery Drink fluids for hydration Keep your appointments as scheduled Take your immunizations and boosters as scheduled If your symptoms worsen call your PCP, if no PCP go to Urgent Care Center or Emergency Room Smoking is Dangerous to Your Health. Avoid second hand smoke Call the 24-hour crisis hotline for domestic abuse at Kalpana Ramirez MD Dec 01, 2016 08:13
[2016-12-01] MEDS ORDERED: BETAMETHASONE SOD PHOS/ACETATE SUSP 30 MG/5 ML VIAL IM ONE (08:15)
== END 2016-12-01 11:36 | disposition home or self-care (01) ==
LOC: HOBED 16:42 → H2EA 19:31
PROVIDERS: ADMIT Obstetrics & Gynecology; ATTEND Obstetrics & Gynecology
DX: O36.8130 Decreased fetal movements, third trimester, not applicable or unspecified (principal); O47.03 False labor before 37 completed weeks of gestation, third trimester; O23.43 Unspecified infection of urinary tract in pregnancy, third trimester; O34.219 Maternal care for unspecified type scar from previous cesarean delivery; Z3A.32 32 weeks gestation of pregnancy
CPT/HCPCS: 59025; 81001; 82731; 85025; 86077; 86850; 86870; 86900; 86901; 86920; 86922; 87086; 87210; 96361; 96374; 99285; G0378; J0696; J0702; J7120

== ENCOUNTER → 2016-12-02 | Outpatient (CLI) | payer BC ==
[~2016-12-02] MED LIST changes: +BETAMETHASONE SOD PHOS/ACETATE SUSP 30 MG/5 ML VIAL IM ONE; +IBUP-232 PO; +OXYC1TAB63 PO; +PREN29TA PO; +SENN1TAB PO
== END ==
LOC: HPND 10:03
PROVIDERS: ATTEND Obstetrics & Gynecology
DX: O60.02 Preterm labor without delivery, second trimester (principal)
CPT/HCPCS: 96372; J0702

== ENCOUNTER 2016-12-17 19:24 | Emergency (ER) | payer BC ==
[~2016-12-17 19:24] MED LIST changes: -BETAMETHASONE SOD PHOS/ACETATE SUSP 30 MG/5 ML VIAL IM ONE; -IBUP-232 PO; -OXYC1TAB63 PO; -PREN29TA PO; -SENN1TAB PO
[2016-12-17] MEDS ORDERED: PREN29TA PO (19:41)
[2016-12-17 19:42] VITALS: BP 109/64; PULSE 109; RESP 18; TEMP 98.6; O2SAT 98
--- NOTE | 2016-12-17 19:56 | PD ---
HPI Chief Complaint: Pain: Acute or Chronic Time Seen by Provider: 19:26 Travel History International Travel<30 days: No Contact w/Intl Traveler<30days: No Traveled to known affect area: No History of Present Illness HPI The patient is a 26-year-old female who presents to the emergency department from the OB ED for evaluation of left leg pain and possible DVT. Patient is is 35 weeks , previous vaginal delivery, was recently placed on 2 weeks of bed rest after labor. The patient states she accidentally bumped medial aspect of the left leg on the crib earlier today, notes some bruising and swelling over the affected area with a visible vein overlying the affected area. The patient was evaluated upstairs and was thought to have a possible DVT. She denies any previous history DVT or PE, but is currently 35 weeks and just came off for 2 weeks bed rest. She denies any left calf pain or significant swelling to left lower extremity, most the swelling is located over the medial aspect the proximal left tibia. She denies any chest pain or shortness of breath. Symptoms are moderate, no current alleviating or exacerbating factors. PFSH Past Medical History Diminished Hearing: No ?: : 2 Para: 1 Miscarriage: 0 : 0 Past Surgical History Section: Yes Oral Surgery: Yes (wisdom teeth) Social History Alcohol Use: No Tobacco Use: No Substance Use: No Allergies-Medications (Allergen,Severity, Reaction): Coded Allergies: No Known Allergies (Unverified , 12/17/16) Reported Meds & Prescriptions Reported Meds & Active Scripts Active Reported Plus Iron 29-1 mg ( Vit-Iron Carbonyl) 1 Tab Tab 1 Tab PO DAILY Review of Systems Except as stated in HPI: all other systems reviewed are Neg General / Constitutional: No: Fever Cardiovascular: No: Chest Pain or Discomfort Respiratory: No: Shortness of Breath Gastrointestinal: No: Nausea, Vomiting, Abdominal Pain Genitourinary: Positive: Other ( 35 weeks ) Musculoskeletal: Positive: Edema, Pain Neurologic: No: Paresthesia, Sensory Disturbance Physical Exam Narrative GENERAL: Awake, alert, pleasant 26 year-old female who appears her stated age and is in no acute respiratory distress. SKIN: Focused skin assessment warm/dry. HEAD: Atraumatic. Normocephalic. EYES: No injection or drainage. ENT: No nasal bleeding or discharge. Mucous membranes pink and moist. NECK: Trachea midline. No JVD. GASTROINTESTINAL: Abdomen gravid. MUSCULOSKELETAL: Mild edema circular fashion over the medial anterior left tibia with some superficial varicosities noted. Negative Homans sign. No tenderness over the left calf. Mild tenderness of the medial aspect of the left thigh. Positive distal pulses. NEUROLOGICAL: Awake and alert. No obvious cranial nerve deficits. Motor grossly within normal limits. Normal speech. PSYCHIATRIC: Appropriate mood and affect; insight and judgment normal. Data Data Last Documented VS Vital Signs Date Time Temp Pulse Resp B/P Pulse Ox O2 Delivery O2 Flow Rate FiO2 12/17/16 19:42 98.6 109 18 109/64 98 Orders Us Leg Venous Doppler (12/17/16 ) MDM Medical Decision Making Medical Screen Exam Complete: Yes Emergency Medical Condition: Yes Medical Record Reviewed: Yes Interpretation(s) Ultrasound is negative for DVT. Differential Diagnosis Differential diagnosis includes hematoma, contusion, superficial varicosities, superficial thrombophlebitis, DVT. Narrative Course Ultrasound of the left lower extremity was ordered. Her son is negative for DVT. The patient is medically cleared to go to OB ED. She is advised elevate, ice and/or apply heat, activity as directed by her dye machine operator. Diagnosis Primary Impression: Left leg pain Patient Instructions: General Instructions Additional Instructions: To OB ED. Please provide the patient a copy of her ultrasound results at discharge. Follow-up with your dye machine operator. Return if symptoms worsen or progress. Med/Other Pt SpecificInfo: No Change to Meds Disposition: 01 DISCHARGE HOME Condition: Stable Patrick Krause MD Dec 17, 2016 19:56
--- NOTE | 2016-12-17 21:00 | RADRPT ---
EXAM DATE/TIME: 12/17/2016 20:28 [place] COMPARISON: No previous studies available for comparison. INDICATIONS : Left leg swelling. MEDICAL HISTORY : . SURGICAL HISTORY : [place] teeth removal. ENCOUNTER: Initial ACUITY: 2 day PAIN SCORE: 3/10 LOCATION: Left leg. TECHNIQUE: Venous ultrasound of the leg was performed from the inguinal ligament to the proximal calf. Real-flynn e, color Doppler and spectral tracing, compression and augmentation techniques were used. FINDINGS: There is normal compressibility of the deep venous system from the inguinal region to the proximal ca lf. No echogenic clot is seen in the lumen of the common femoral, femoral, popliteal, and posterior tibial veins. There is a normal response of the venous system to proximal and distal augmentation an d respiration. CONCLUSION: No evidence of deep venous thrombosis within the left lower extremity. Jason Man MD on December 17, 2016 at 20:57 Board Certified Radiologist. This report was verified electronically.
== END 2016-12-17 21:35 | disposition home or self-care (01) ==
LOC: NEPC 19:24
DX: O26.899 Other specified pregnancy related conditions, unspecified trimester (principal); M79.605 Pain in left leg; Z3A.35 35 weeks gestation of pregnancy
CPT/HCPCS: 93971; 99284

== ENCOUNTER 2016-12-24 18:44 | Emergency (ER) | payer BC ==
[~2016-12-24 18:44] MED LIST changes: -CEPH-460 PO; -MACR100C2 PO; -OXYC1SOL5 PO; -PERI8.6T PO; +PREN29TA PO; -PRENTAB50 PO; -ZITH1POW PO
--- NOTE | 2016-12-24 19:49 | PD ---
HPI Chief Complaint Leaking fluid Date Seen: Dec 24, 2016 Time Seen: 19:40 Travel History International Travel<30 Days: No Contact w/Intl Traveler<30Days: No Known Affected Area: No History of Present Illness HPI 26-year-old 2 para 1 at 36+ weeks gestation who comes in with a complaint of possible leakage of amniotic fluid. She denies any bleeding or increased contraction activity. She has had mild irregular contractions over the past 2 weeks. Para: 1 : 2 History Past Medical History Medical History: Denies Significant Hx Obstetric History Obstetric History Prior , her first remarkable for child with Marques syndrome Past Surgical History Narrative Surgical Family History Family History: Negative Social History Alcohol Use: No Tobacco Use: No Substance Abuse: No Allergies-Medications (Allergen,Severity, Reaction): Coded Allergies: No Known Allergies (Unverified , 12/17/16) Home Meds Reported Medications Vit-Iron Carbonyl ( Plus Iron 29-1 mg)1 Tab Tab1 Tab PO DAILY #30 TAB Ref 0 12/17/16 Discontinued Scripts Cephalexin (Keflex)500 Mg [id number] Mg PO Q8H #30 CAP Ref 0 Prov:Marvel Gavin II, MD 10/11/16 Azithromycin Powder Packet (Zithromax Powder Packet)1 Gm Powderpack1 Gm PO ONCE #1 PKT Ref 0 Mix with water according to packet instructions before use. Prov:Marvel Gavin II, MD 10/11/16 Nitrofurantoin Monohydrate Macrocrystals (Macrobid)100 Mg [id number] Mg PO BID 5 Days Ref 0 Prov:Eriberto Michaels MD 06/23/16 Review of Systems Except as stated in HPI: all other systems reviewed are Neg Physical Exam Narrative GENERAL: Well-nourished, well-developed patient. SKIN: Warm and dry. HEAD: Normocephalic and atraumatic. EYES: No scleral icterus. No injection or drainage. ENT: No nasal drainage noted. Mucous membranes pink. Airway patent. NECK: Supple, trachea midline. No JVD. CARDIOVASCULAR: Regular rate and rhythm without murmurs, gallops, or rubs. RESPIRATORY: Breath sounds equal bilaterally. No accessory muscle use. ABDOMEN/GI: Abdomen soft, non-tender, bowel sounds present, no rebound, no guarding Gravid to [-] weeks size Fundal Height: [37-] GENITOURINARY: External Genitalia: intact and normal in appearance BUS glands: [-] Cervix: [-] Dilatation: [-Closed] Effacement: [-50] Station: [-] Presentation: [Vertex-] Membranes: [intact ] Uterine Contractions: [Mild irregular-] FHT's: Category: [-] Baseline: [-] Reactive: [Yes-] Variability: [-] Decels: [-] EXTREMITIES: No cyanosis or edema. BACK: Nontender without obvious deformity. No CVA tenderness. NEUROLOGICAL: Awake and alert. Motor and sensory grossly within normal limits. Five out of 5 muscle strength in all muscle groups. Normal speech. Data Data Vital Signs Reviewed: Yes MDM Medical Record Reviewed: Yes Narrative Course / MDM Assessment: 36+ week intrauterine with no evidence of ruptured membranes Plan: Continue routine care visits, labor precautions were reviewed. Diagnosis Diagnosis: Primary Impression: 36 weeks gestation of Additional Impression: Intact amniotic membranes during in third trimester Disposition: 01 DISCHARGE HOME Condition: Good Patient Instructions: General Instructions, Early Labor Signs (ED), Abdominal Pain in (ED) Departure Forms: Tests/Procedures Neeraj Arrington MD Dec 24, 2016 19:49
== END 2016-12-24 20:04 | disposition home or self-care (01) ==
LOC: HOBED 18:44
DX: O26.93 Pregnancy related conditions, unspecified, third trimester (principal); Z3A.36 36 weeks gestation of pregnancy
CPT/HCPCS: 84112; 99282